=== PATIENT | female | born 1970 | race Caucasian/White ===

== ENCOUNTER → 2021-12-14 14:52 | Outpatient (BNVA) | payer MEDICAID, SELFPAY | PROVIDERS: PCP Physical Medicine & Rehabilitation; Visit Provider Internal Medicine | DX: M96.1 Postlaminectomy syndrome, not elsewhere classified (principal); M51.36 Other intervertebral disc degeneration, lumbar region | CPT/HCPCS: 99202 ==

== ENCOUNTER 2023-11-07 11:02 | Outpatient (AMB) | payer MEDICAID, SELFPAY ==
--- NOTE | 2023-11-07 11:05 | MHC.OFFVIS ---
Vital Signs 11/07/23 11:07 Weight 190 lb BP 122/68 Blood Pressure Location Lt brachial Position Sitting Respiration 16 Pulse 97 Pulse Source Pulse Oximeter Pulse Oximetry (%) 97 Oxygen Delivery Method Room Air Intake Visit Reasons: Degeneration interval disc Allergies bee pollen [BEE STINGS] Allergy (Unknown, Verified 12/14/21 14:58) ANAPHYLAXIS hydrocodone Adverse Reaction (Unknown, Verified 11/07/23 11:10) Unknown Medication List - Last Reconciled 11/07/23 by Jeanie Lowe LPN acetaminophen-pamabrom 500-25 mg (Midol) 1 tab PO Q6H PRN cyclobenzaprine 10 mg PO TID PRN ibuprofen 600 mg PO TID lidocaine 5% 1 patch topical DAILY nicotine 1 patch topical DAILY omeprazole 20 mg PO DAILY paroxetine mesylate(menop.sym) 7.5 mg PO DAILY trazodone 50 mg PO BEDTIME HPI HPI Degeneration interval disc: Details: 53-year-old female who presents today to the office for degeneration interval disc. She reports lower back pain and hip pain. She reports muscle spasms, which are severe in nature. She states that she was unable to receive injection at pain management due to muscle spasm. She has difficulty sleeping at night due to pain. She states that trazadone is not helpful. She is already being scheduled for a new MRI of the lumbar spine. Prior imaging is notably for chronic insufficiency fracture of the L5 and severe L5 S1 vertebral endplate degeneration.?He has been trying to wean down and quitting smoking and has been using nicotine patches. She has had two major surgeries in the past. [facility] Medical History (Updated 12/14/21 @ 16:38 by Julian Freed MD) Seizures Arrhythmia Cancer Review of Systems Const All systems reviewed & are unremarkable except as noted in HPI and below Physical Exam Vital Signs: Last Vital Signs Pulse 97 11/07/23 11:07 Resp 16 11/07/23 11:07 BP 122/68 11/07/23 11:07 Pulse Ox 97 11/07/23 11:07 Oxygen Delivery Method Room Air 11/07/23 11:07 General: Appears afebrile. Alert and oriented. Mood and affect appropriate. Follows and participates in conversation appropriately. Respiratory effort is unlabored. Able to transition from sit to stand unassisted. Ambulates with bilaterally normal heel strike and toe off. Results Reviewed Results Reviewed: Flex ex X-ray of the lumbar spine demonstrates severe intervertebral disc degeneration at L5-S1 without evidence of spondylolisthesis. Assessment & Plan Assessment & Plan (1) Post-laminectomy syndrome: Code(s): M96.1 - Postlaminectomy syndrome, not elsewhere classified Category: Medical (2) Disc degeneration, lumbar: Code(s): M51.36 - Other intervertebral disc degeneration, lumbar region Category: Medical Plan She is already being scheduled for a new MRI of the lumbar spine. Prior imaging is notably for chronic insufficiency fracture of the L5 and severe L5 S1 vertebral endplate degeneration. She will follow up after completion of the MRI scan to review with us. Scribed for Dr. Freed by Jvue Choi, medical file clerk, on 11/07/2023. I, Dr. Freed, have personally reviewed and agree with the information entered by the scribe. Orders: Orders XR lumbar spine bending only 11/07/23 M51.36 - Other intervertebral disc degeneration, lumbar region, M96.1 - Postlaminectomy syndrome, not elsewhere classified Coding Level of Care Code New Pt Level 3 (50059) Diagnoses Post-laminectomy syndrome M96.1 Disc degeneration, lumbar M51.36
[2023-11-07 11:07] VITALS: BP 122/68; PULSE 97; RESP 16; O2SAT 97
== END 2023-11-07 11:38 | disposition home or self-care (01) ==
LOC: HO.PMC 11:02
PROVIDERS: Visit Provider Internal Medicine
DX: M96.1 Postlaminectomy syndrome, not elsewhere classified (principal); M51.36 Other intervertebral disc degeneration, lumbar region
CPT/HCPCS: 99213

== ENCOUNTER 2023-11-07 11:02 | Outpatient (REF) | payer MEDICAID, SELFPAY ==
--- NOTE | ~2023-11-07 | XR_ITS ---
EXAMINATION: XR LUMBOSACRAL SPINE BENDING FILMS ONLY CLINICAL INFORMATION: Intervertebral disc degeneration lumbar region. COMPARISON: None available. TECHNIQUE: Lateral flexion and extension views of the lumbar spine. Limited visualization due to body habitus. FINDINGS: Facet arthritis in the lower lumbar spine. Lumbar vertebral body heights are preserved. Multilevel lumbar spondylosis. For the purposes of this report, the most inferior well-formed vertebral body will be referred to as L5, although correlation with dedicated imaging of the entire spine is needed before any procedure/intervention. Advanced degenerative changes with loss of disc space height and hypertrophic change at L5-S1. Moderate degenerative changes and loss of disc space height at L3-L4 and L4-L5. Alignment preserved on flexion and extension views. XR/XR lumbar spine bending only IMPRESSION: Multilevel degenerative disc disease most notable at L5-S1. Electronically signed by: Gina Thurman MD 12/28/2023 01:30 PM [facility]
== END 2023-11-07 11:03 | disposition home or self-care (01) ==
LOC: HO.XRAY 11:02
PROVIDERS: Visit Provider Internal Medicine
DX: M96.1 Postlaminectomy syndrome, not elsewhere classified (principal); M51.36 Other intervertebral disc degeneration, lumbar region
CPT/HCPCS: 72120; 99212